=== PATIENT | female | born 1955 | race Caucasian/White ===

== ENCOUNTER 2017-10-06 23:47 | Emergency (ER) | payer OTHER ==
[~2017-10-06 23:47] MED LIST: EPINEPHrine 10 ML SYRINGE (0.1 MG/ML) ONE
[2017-10-06] MEDS ORDERED: SODIUM CHLORIDE 0.9% 1,000 ML IV ONE (23:51)
[2017-10-07] MEDS ORDERED: PROPOFOL 10 MG/ML 20 ML VIAL IV STA (00:18)
[2017-10-07 00:21] LABS: CH 31.1; CHCM 26.8; HCT 38.8 % (34.0-46.0); HDW 2.25; HGB 10.9 gm/dL (11.4-16.0); Hypochromasia Marked; MCH 32.6 pg (25.0-35.0); MCV 116.3 fL (80.0-100.0); Macrocytosis Marked; Mean Platelet Volume 7.7; RBC 3.33 m/uL (3.80-5.40); RDW 12.6 % (11.5-15.5); WBC 8.7 k/uL (3.8-10.6); WBC (Perox) 8.55
[2017-10-07 00:22] LABS: Glucose,Whole Blood 243 mg/dL (75-99)
--- NOTE | 2017-10-07 00:26 | XR ---
EXAMINATION TYPE: XR chest 1V portable DATE OF EXAM: 10/07/2017 COMPARISON: NONE HISTORY: Cardiac arrest. Tube placement TECHNIQUE: Single frontal view of the chest is obtained. FINDINGS: Endotracheal tube is in good position. There is pulmonary interstitial edema. Heart size i s normal. I see no pleural effusion or pneumothorax. There is a large amount of air in the stomach. IMPRESSION: Endotracheal tube is in good position. There is mild pulmonary edema that could be mild heart failure.
[2017-10-07 00:27] LABS: ALT 72 U/L (9-52); AST 75 U/L (14-36); Alkaline Phosphatase 72 U/L (38-126); Anion Gap 13 mmol/L; Blood Urea Nitrogen 19 mg/dL (7-17); Carbon Dioxide 29 mmol/L (22-30); Chloride 98 mmol/L (98-107); Glucose 292 mg/dL (74-99); Magnesium 2.6 mg/dL (1.6-2.3); Non-African American GFR(MDRD) >60 (>60 ml/min/1.73 sqM); Potassium 5.4 mmol/L (3.5-5.1); Sodium 140 mmol/L (137-145); Total Bilirubin <0.1 mg/dL (0.2-1.3); Total Protein 4.3 g/dL (6.3-8.2)
[2017-10-07 00:36] LABS: Creatine Kinase 123 U/L (30-135)
[2017-10-07 00:38] LABS: INR 1.5 (<1.2); Prothrombin Time 14.9 sec (9.0-12.0)
[2017-10-07 00:41] LABS: Add Differential Manual Differential
--- NOTE | 2017-10-07 00:43 | XR ---
EXAMINATION TYPE: XR chest 1V portable DATE OF EXAM: 10/07/2017 COMPARISON: 10/06/2017 HISTORY: Tube placement TECHNIQUE: Single frontal view of the chest is obtained. FINDINGS: Endotracheal tube is in good position. There is pulmonary interstitial edema. Heart size i s normal. There is no evidence of a pneumothorax. Trachea is midline. There is no sign of pleural eff usion. IMPRESSION: There is significantly increasing left-sided pulmonary interstitial edema compared to th e exam half-hour ago.
[2017-10-07 00:45] LABS: Manual Review Performed; Nucleated Red Blood Cells 0 /100 WBC (0-0); Total Cells Counted 200
[2017-10-07 00:47] LABS: Partial Thromboplastin Time 67.3 sec (22.0-30.0)
[2017-10-07 00:49] LABS: Troponin I <0.012 ng/mL (0.000-0.034)
[2017-10-07 00:52] LABS: Creatine Kinase MB 7.7 ng/mL (0.0-2.4)
[2017-10-07] MEDS ORDERED: SODIUM CHLORIDE 0.9% 1,000 ML IV STA (00:55)
--- NOTE | 2017-10-07 00:59 | CT ---
EXAMINATION TYPE: CT brain ana lilia lowe DATE OF EXAM: 10/07/2017 COMPARISON: NONE HISTORY: Cardiac arrest. Pain. CT DLP: mGycm Automated exposure control for dose reduction was used. TECHNIQUE: CT scan of the head and cervical spine are performed without contrast. FINDINGS: Ventricles appear small for the patient's age. There is lack of a sulcal pattern. I see n o evidence of intracranial hemorrhage. There is no hydrocephalus. Calvarium is intact. Endotracheal t ube is noted. The cervical vertebra have normal spacing and alignment. Posterior elements are intact. There is no e vidence for fracture. The skull base is intact. There is extensive fibrosis and emphysema in the visu alized upper lung castro.. IMPRESSION: There is slight loss of the sulci pattern that could relate to cerebral edema. No evidence of intracr anial hemorrhage. No sign of a cortical infarct. Severe pulmonary emphysema and fibrotic change in the upper lobes. Minor spondylotic change in the cervical spine. No fracture.
[2017-10-07] MEDS ORDERED: EPINEPHrine 2 MG in DEXTROSE 5% IN WATER 250 ML IV ONE ×2 (01:25)
[2017-10-07] MEDS ORDERED: SODIUM BICARB 8.4% 50 ML SYR (1 MEQ/ML) IV STA (02:00)
[2017-10-07 02:18] LABS: ABG PH 7.15 (7.35-7.45)
[2017-10-07 02:19] LABS: ABG Base Excess -3.9 mmol/L; ABG HCO3 24 mmol/L (21-25); ABG PCO2 71 mmHg (35-45); ABG PO2 159 mmHg (83-108); ABG TCO2 26 mmol/L (19-24)
[2017-10-07 02:26] VITALS: RESP 16
--- NOTE | 2017-10-07 02:27 | XR ---
EXAMINATION TYPE: XR chest 1V portable DATE OF EXAM: 10/07/2017 COMPARISON: Today HISTORY: Central line placement TECHNIQUE: Single frontal view of the chest is obtained. FINDINGS: There is a left jugular catheter with the tip in the superior vena cava. There is no sign of a pneumothorax. There is bilateral pulmonary edema that is slightly worse than the exam 90 minutes ago. Endotracheal tube is in good position. IMPRESSION: Catheter appears in good position. There is worsening pulmonary edema.
[2017-10-07] MEDS ORDERED: FUROSEMIDE 10 MG/ML 4 ML VIAL IV STA (03:06)
[2017-10-07] MEDS ORDERED: NOREPINEPHRIN 4 MG-0.9% NS PMX 4 MG/250 ML ML IV ONE ×2 (03:10→23:53)
--- NOTE | 2017-10-07 03:44 | ED ---
CPR HPI - General Chief Complaint: Cardiac Arrest/CPR Stated Complaint: Cardiac Arrest Time Seen by Provider: 10/07/17 00:05 Source: EMS Mode of arrival: EMS Limitations: no limitations - History of Present Illness Initial Comments: X-ray 2 years old female was found unresponsive at home details about her downtime was not quite clear embolus crew did the CPR and now they had the spontaneous return of the circulation as well as pulse 5 minutes on a half after arrival to the ER she had another cardiac arrest, CPR was done for few minutes and we had a spontaneous return of circulation then did notice her blood pressure was very low blood pressure was supported with fluids and then norepinephrine epinephrine was done to the maximum recommended dose blood pressure stayed low within the baby handed epinephrine to norepinephrine. Patient was unresponsive but there were no review of systems available EKG had a suspicion of a STEMI Dr. Moss was contacted EKG was faxed to Dr. Moss felt that she do not need to go to the [facility] within 5) family arrived family was informed about her very low blood pressure into episodes of asystole. - Related Data Allergies Allergy/AdvReac Type Severity Reaction Status Date / Time No Known Allergies Allergy Verified 10/07/17 00:54 Review of Systems ROS Statement: Those systems with pertinent positive or pertinent negative responses have been documented in the HPI. ROS Other: All systems not noted in ROS Statement are negative. Past Medical History Past Medical History: Unable to Obtain History of Any Multi-Drug Resistant Organisms: Unobtainable Past Surgical History: Unable to Obtain Past Psychological History: Unable to Obtain Smoking Status: Unknown if ever smoked Past Alcohol Use History: Unable to Obtain Past Drug Use History: Unable to Obtain General Exam - General Exam Comments Initial Comments: General: The patient is unresponsive, GCS is 3 she was intubated Skin: Skin is warm and dry and no rashes or lesions are noted. Very pale Eye: Pupils are equal, very sluggishly reactive to light Ears, nose, mouth and throat: It is some blood oozing of the both nostrils and in the oropharynx Neck: The neck is supple, he is in a c-collar Cardiovascular: It's a bradycardia at the time of exam heart rate was 55 Respiratory: To auscultation bilateral, poor air exchange bilateral Gastrointestinal: Soft, non-distended, non-tender abdomen without masses or organomegaly noted. There is no rebound or guarding present. Bowel sounds are unremarkable. Back: There from a sign noticed Musculoskeletal: Normal ROM, no tenderness, There is no pedal edema. There is no calf tenderness or swelling. No cords were appreciated. Neurological: CN II-XII intact, Cranial nerves III through XII are intact. There are no obvious motor or sensory deficits. Coordination appears grossly intact. Speech is normal. Psychiatric: Intubated unable to assess for. Limitations: no limitations Course Vital Signs 10/07/17 10/07/17 10/07/17 00:08 02:23 02:26 Temperature 94.5 F L Pulse Rate 96 50 L Pulse Rate [ 55 L High Scaler ] Respiratory 20 16 Rate Blood Pressure 137/78 125/68 O2 Sat by Pulse 99 100 Oximetry 10/07/17 10/07/17 10/07/17 02:29 02:47 03:06 Temperature Pulse Rate 48 L 52 L 74 Pulse Rate [ High Scaler ] Respiratory 16 16 16 Rate Blood Pressure 136/65 163/77 126/60 O2 Sat by Pulse 100 100 100 Oximetry 10/07/17 03:26 Temperature Pulse Rate 77 Pulse Rate [ High Scaler ] Respiratory 16 Rate Blood Pressure 106/58 O2 Sat by Pulse 100 Oximetry EKG is 100 bpm is definitely and clearly and rhythm did notice any P waves on this EKG QRS duration is 126 QT/QTc is 410/528 this is a suspicion of ST elevation in lead 2 and 3 and aVF but is now quite down R textbook and also a suspicion of STEMI in V4 and nonspecific interventricular block and nonspecific T-wave abnormality him EKG was faxed to Dr. Moss he was consulted about the EKG Procedures - Central Line Placement Left IJ Consent Obtained: emergent situation Time Out Performed: Yes Patient Placed on Monitor/Pulse Ox: Yes Central Line Prep: Chlorhexidine scrub Local Anesthesia Used: Lidocaine 1% Amount of Anesthesia Used (mls): 5 Ultrasound Used for Placement: Yes Central Line Lumen Inserted: triple Bloods Obtained for Lab: Yes Central Line Position: good blood return, all ports aspirated, flushed, capped Dressing Applied: Tegaderm Post Procedure X-Ray: tip of catheter in good position Patient Tolerated Procedure: well Complications: none (X-ray confirmed the correct position) Medical Decision Making - Lab Data Result diagrams: 10/06/17 23:58 10/06/17 23:58 Lab Results 10/06/17 10/06/17 10/06/17 Range/Units 23:58 23:58 23:58 WBC 8.7 (3.8-10.6) k/uL RBC 3.33 L (3.80-5.40) m/uL Hgb 10.9 L (11.4-16.0) gm/dL Hct 38.8 (34.0-46.0) % MCV 116.3 H (80.0-100.0) fL MCH 32.6 (25.0-35.0) pg MCHC 28.0 L (31.0-37.0) g/dL RDW 12.6 (11.5-15.5) % Plt Count 248 (150-450) k/uL Neutrophils % (Manual) 44 % Lymphocytes % (Manual) 37 % Monocytes % (Manual) 19 % Eosinophils % (Manual) 2 % Neutrophils # (Manual) 3.83 (1.3-7.7) k/uL Lymphocytes # (Manual) 3.22 (1.0-4.8) k/uL Monocytes # (Manual) 1.65 H (0-1.0) k/uL Eosinophils # (Manual) 0.17 (0-0.7) k/uL Nucleated RBCs 0 (0-0) /100 WBC Manual Slide Review Performed Hypochromasia Marked Macrocytosis Marked PT (9.0-12.0) sec INR (<1.2) APTT (22.0-30.0) sec Sample Site ABG pH (7.35-7.45) ABG pCO2 (35-45) mmHg ABG pO2 (83-108) mmHg ABG HCO3 (21-25) mmol/L ABG Total CO2 (19-24) mmol/L ABG O2 Saturation (94-97) % ABG Base Excess mmol/L FiO2 % Sodium 140 (137-145) mmol/L Potassium 5.4 H (3.5-5.1) mmol/L Chloride 98 (98-107) mmol/L Carbon Dioxide 29 (22-30) mmol/L Anion Gap 13 mmol/L BUN 19 H (7-17) mg/dL Creatinine 0.70 (0.52-1.04) mg/dL Est GFR (MDRD) Af Amer >60 (>60 ml/min/1.73 sqM) Est GFR (MDRD) Non-Af >60 (>60 ml/min/1.73 sqM) Glucose 292 H (74-99) mg/dL POC Glucose (mg/dL) (75-99) mg/dL POC Glu Manager Decision Support ID Calcium 8.0 L (8.4-10.2) mg/dL Magnesium 2.6 H (1.6-2.3) mg/dL Total Bilirubin <0.1 L (0.2-1.3) mg/dL AST 75 H (14-36) U/L ALT 72 H (9-52) U/L Alkaline Phosphatase 72 (38-126) U/L Total Creatine Kinase 123 (30-135) U/L CK-MB (CK-2) 7.7 H* (0.0-2.4) ng/mL CK-MB (CK-2) Rel Index 6.3 Troponin I <0.012 (0.000-0.034) ng/mL Total Protein 4.3 L (6.3-8.2) g/dL Albumin 2.5 L (3.5-5.0) g/dL 10/07/17 10/07/17 10/07/17 Range/Units 00:01 00:16 02:16 WBC (3.8-10.6) k/uL RBC (3.80-5.40) m/uL Hgb (11.4-16.0) gm/dL Hct (34.0-46.0) % MCV (80.0-100.0) fL MCH (25.0-35.0) pg MCHC (31.0-37.0) g/dL RDW (11.5-15.5) % Plt Count (150-450) k/uL Neutrophils % (Manual) % Lymphocytes % (Manual) % Monocytes % (Manual) % Eosinophils % (Manual) % Neutrophils # (Manual) (1.3-7.7) k/uL Lymphocytes # (Manual) (1.0-4.8) k/uL Monocytes # (Manual) (0-1.0) k/uL Eosinophils # (Manual) (0-0.7) k/uL Nucleated RBCs (0-0) /100 WBC Manual Slide Review Hypochromasia Macrocytosis PT 14.9 H (9.0-12.0) sec INR 1.5 H (<1.2) APTT 67.3 H (22.0-30.0) sec Sample Site left radial ABG pH 7.15 L* (7.35-7.45) ABG pCO2 71 H* (35-45) mmHg ABG pO2 159 H (83-108) mmHg ABG HCO3 24 (21-25) mmol/L ABG Total CO2 26 H (19-24) mmol/L ABG O2 Saturation 99.0 H (94-97) % ABG Base Excess -3.9 mmol/L FiO2 100 % Sodium (137-145) mmol/L Potassium (3.5-5.1) mmol/L Chloride (98-107) mmol/L Carbon Dioxide (22-30) mmol/L Anion Gap mmol/L BUN (7-17) mg/dL Creatinine (0.52-1.04) mg/dL Est GFR (MDRD) Af Amer (>60 ml/min/1.73 sqM) Est GFR (MDRD) Non-Af (>60 ml/min/1.73 sqM) Glucose (74-99) mg/dL POC Glucose (mg/dL) 243 H (75-99) mg/dL POC Glu Manager Decision Support ID [place] Calcium (8.4-10.2) mg/dL Magnesium (1.6-2.3) mg/dL Total Bilirubin (0.2-1.3) mg/dL AST (14-36) U/L ALT (9-52) U/L Alkaline Phosphatase (38-126) U/L Total Creatine Kinase (30-135) U/L CK-MB (CK-2) (0.0-2.4) ng/mL CK-MB (CK-2) Rel Index Troponin I (0.000-0.034) ng/mL Total Protein (6.3-8.2) g/dL Albumin (3.5-5.0) g/dL Critical Care Time Total Critical Care Time: 120 Critical Care Time: When she came in there was a suspicion of for STEMI, EKG was faxed to Dr. Moss on-call bi report developer strongly of for presenting complaint was very unclear in his she has a cardiac arrest when EMS arrived here CPR brought the pulse back but there was no clear information how long she was down and then she had another cardiac arrest on arrival to the ER, disposition was performed in a she had a spontaneous return of circulation then she dropped her blood pressure 378 and 60 systolic and 50-60 systolic was treated with the no appendectomy infusion nor appendectomy infusion was maxed and she was still blood pressure in the range of 70, at that point appendectomy epinephrine infusion was started sure he had a liter and half of fluids and chest x-ray was showing signs of congestive heart failure. At that point central line was done. She was intubated when she came in but somehow RT felt that she was not ventilating right at that point we got the tube out and she was intubated in the ER with the correct visualization of the vocal cords with a kaleidoscope in that improved her ventilation and perfusion. Has a neck CT was done, head CT showed sinus rebound or edema. Discussion was done with the family and they [facility] at this point there was no clear reason why she would have a cerebral edema though there was no obvious history of trauma, we called [facility] dr daugherty accepted his care family's agreed with the transfer and patient be transferred to [facility] Disposition Clinical Impression: Cardiac arrest, Cerebral edema, Hypotension Disposition: OTHER INSTITUTION NOT DEFINED Condition: Poor Referrals: None,Stated [Primary Care Provider] - 1-2 days - Out of Hospital Transfer - Req. Specs Out of Hospital Transfer - Requested Specifics: Other Emergency Center (She'll be transferred to [facility] ER, except the transfer)
[2017-10-07 04:00] VITALS: BP 93/51; PULSE 83; TEMP 96.2
== END 2017-10-07 04:15 | disposition short-term general hospital (02) ==
LOC: EC 23:47
DX: I46.9 Cardiac arrest, cause unspecified (principal); G93.6 Cerebral edema; I95.9 Hypotension, unspecified; R40.2432 Glasgow coma scale score 3-8, at arrival to emergency department
CPT/HCPCS: 99291; 99292 ×2; 36556; 92950; 31500; 96360; 96361 ×3; 36415 ×2; 36600; 94002; 93005; 80053; 82550; 82553; 82805; 83735; 84484; 85025; 85610; 85730; 71010 ×2; 72125; 70450; J0171 ×2; J2704